=== PATIENT | male | born 1970 | race Caucasian/White ===

== ENCOUNTER 2016-09-19 16:10 | Emergency (ER) | payer OTHER ==
[~2016-09-19 16:10] MED LIST: ALEVE220 M2 PO; ALEVE220 M4 PO; ATIVAN0.5 M1; ATIVAN0.5 M1 PO; AZITHROMYCIN250 M1 PO; BI POLAR MED PO; COMPAZINE10 M PO; COZAAR50 M1 PO; CYCLOBENZAPRINE10 M1 PO; FARXIGA5 M1 PO; IBUPROFEN800 M1 PO; LAMICTAL100 M1 PO; LAMICTAL200 M2 PO; METFORMIN HCL1000 MG PO; NORCO 5/325 TAB1 TAB PO; TRILEPTAL150 M2 PO; ZITHROMAX250 M1 PO; ZITHROMAX250MG Z-PAK PO
[2016-09-19] MEDS ORDERED: NORCO 5-325 TA1 EACH PO (17:18)
[2016-09-19] MEDS ORDERED: IBUPROFEN800 M1 PO (17:18)
== END 2016-09-19 17:26 ==
LOC: EDMED 16:10
DX: M25.561 Pain in right knee (principal); I10 Essential (primary) hypertension; E11.9 Type 2 diabetes mellitus without complications; W19.XXXA Unspecified fall, initial encounter